=== PATIENT | female | born 1950 | race Caucasian/White ===

== ENCOUNTER 2023-07-01 13:37 | Emergency (ER) | payer MEDICARE, SELFPAY ==
[2023-07-01 13:47] VITALS: BP 146/97; PULSE 118; RESP 18; TEMP 36.5; O2SAT 97
--- NOTE | 2023-07-01 14:00 | DI.RAD_ITS ---
Exam(s) XR CHEST 2V PA LATERAL EXAM: XR CHEST 2V PA LATERAL CLINICAL HISTORY: shortness of breath, COVID +. TECHNIQUE: 2D digital imaging was performed. COMPARISON: No exams were available for comparison FINDINGS: 2 views: Heart size is normal. The mediastinum is not widened. There is some hyperinflation. Right lung is clear. There is nodular density measuring 1 cm in the l eft upper lobe. This may, however, just be the anterior aspect of the 1st rib. No confluent infiltr ates and no pleural effusions. No fractures. No pneumothorax IMPRESSION: No infiltrates nor pleural effusions. 1 cm left upper lobe nodule. There is possibly that this may just be the anterior costochondral junc tion of the left 1st rib. DATA REPOSITORY: RADIATION DOSE DELIVERED:
--- NOTE | 2023-07-01 14:00 | RT.EKG_ITS ---
APPROVED REPORT Exam: Resting ECG Reason for Exam: tachycardia Patient Location: E HR:96 bpm ECG Measurements Heart Rate 96 AXIS [place] 153 P 55 QRSd 77 QRS 45 QT 327 T 23 QTc 414 Conclusion Sinus rhythm...V-rate 60- [address] segment or T wave abnormlaiteis to suggest occlusive [place].
[2023-07-01 14:30] LABS: Abs Immature Grans 0.01 10^3/uL (0.0-0.06); Absolute Basophil Count 0.03 10^3/uL (0.0-0.2); Absolute Eosinophil Count 0.04 10^3/uL (0.0-0.7); Absolute Lymphocyte Count 1.26 10^3/uL (1.2-3.4); Absolute Monocyte Count 0.63 10^3/uL (0.1-0.8); Absolute Neutrophil Count 1.87 10^3/uL (1.2-6.7); Basophils % 0.8; HCT 43.7 % (36.0-46.0); HGB 14.7 g/dL (11.2-15.7); Immature Grans % 0.3; Lymphocytes % 32.8; MCH 30.4 pg (27.0-33.0); MCHC 33.6 % (32.0-36.0); MCV 91 fL (80-95); MPV 9.4 fL (8.0-11.0); Monocytes % 16.4; Neutrophils % 48.7; Platelet Count 156 10^3/uL (130-400); RBC 4.83 10^6/uL (3.93-5.22); RDW 12.2 % (11.7-14.6); RDW-SD 39.9 fL; WBC 3.84 10^3/uL (4.4-10.8)
--- NOTE | 2023-07-01 14:31 | W.ED.GENAD ---
Discharge Plan Disposition Patient Disposition: Home Condition: Good Discharge Details Clinical Impression: COVID-19 Primary Care Provider: Danitza,[facility] ED Provider: Jesenia Michelle Discharge Instructions Instructions: COVID-19 (Coronavirus Disease 2019) (ED) Additional Instructions: Call your primary care doctor today to discuss whether or not you should start Paxlovid- verapamil does interact with Paxlovid so your primary care doctor should decide if you should keep taking this medication or not. Schedule a PCP appointment within one week to follow up on your visit here. Mention that your chest xray should a possible small lung nodule- they may want to get a repeat scan at some point. Keep your appointments to follow up on your thyroid. Return to the emergency department for new or worsening symptoms including difficulty breathing, chest pain, or if you have any other concerns. Medical Decision Making 73yo F with history of hypertension, osteoporosis, presenting with COVID and concern for elevated heart rate. Began to feel unwell approximately 3-4 days ago, tested positive for covid yesterday, today noted her heart rate was higher than usual, 110's while up and walking around, 90's while at rest. No shortness of breath or chest pain. Tachycardiac to 110's on arrival after ambulating into triage, vital signs otherwise reassuring, normal O2 sat. . HR improved to 90's without intervention. Reassuring physical exam, no respiratory distress. EKG NSR, appropriate intervals, no ST segment or T wave abnormalities to suggest occlusive [place]. CXR independently reviewed, no focal pneumonia or pneumothorax on my view, agree with radiology read below. Labs reviewed as below, CBC reassuring, CMP with no actionable abnormalities, lactate normal, TSH elevated with normal T4, troponin negative, d-dimer slightly elevated. Given tachycardia and elevated dimer in the setting of COVID, CT for PE ordered and independently reviewed; no large pulmonary embolism on my view, agree with radiology read below (patient aware of thyroid findings prior and has workup scheduled outpatient already). On reassessment she remains well appearing with no respiratory distress, reassuring vital signs . Patient is on verapamil which does interact with Paxlovid which she is in the window to potentially start- she was advised to call her primary care doctor today to discuss this and whether to proceed with Paxlovid, hold her verapamil, or adjust her dose. Discharged home to PCP follow; discharge instructions and return precautions were reviewed with patient who verbalized understanding; all questions were answered and she is in full agreement with the plan. Imaging Data Radiologic Study: Imaging: X-Ray Radiologist's impression: IMPRESSION: No infiltrates nor pleural effusions. 1 cm left upper lobe nodule. There is possibly that this may just be the anterior costochondral junction of the left 1st rib. Radiologic Study #2: Imaging: CT Scan Radiologist's impression: IMPRESSION: No evidence of pulmonary embolism. No evidence of pulmonary infiltrates. Incidentally noted enlargement of the left lobe of the thyroid. Nonemergent thyroid ultrasound could be considered. Lab Data Lab results reviewed: Yes I reviewed the patient's lab results. Labs: Laboratory Tests Range/Units 07/01/23 14:19 WBC (4.4-10.8) 10^3/uL 3.84 L RBC (3.93-5.22) 10^6/uL 4.83 Hgb (11.2-15.7) g/dL 14.7 Hct (36.0-46.0) % 43.7 MCV (80-95) fL 91 MCH (27.0-33.0) pg 30.4 MCHC (32.0-36.0) % 33.6 RDW (11.7-14.6) % 12.2 Plt Count (130-400) 10^3/uL 156 MPV (8.0-11.0) fL 9.4 Immature Gran % 0.3 Neutrophils % 48.7 Lymphocytes % 32.8 Monocytes % 16.4 Eosinophils % 1.0 Basophils % 0.8 Nucleated RBC % (0.0-0.3) % 0.0 Absolute Neutrophils (1.2-6.7) 10^3/uL 1.87 Absolute Lymphocytes (1.2-3.4) 10^3/uL 1.26 Absolute Monocytes (0.1-0.8) 10^3/uL 0.63 Absolute Eosinophils (0.0-0.7) 10^3/uL 0.04 Absolute Basophils (0.0-0.2) 10^3/uL 0.03 PT (9.1-11.1) sec 9.9 INR (0.9-1.1) 1.0 APTT (23.6-32.8) sec 28.8 D-Dimer (<500) ng/mlFEU 543 H VBG Lactate (0.6-1.4) mmol/L 1.0 Sodium (136-145) mmol/L 136 Potassium (3.5-5.1) mmol/L 3.6 Chloride (98-107) mmol/L 99 Carbon Dioxide (21.0-32.0) mmol/L 28.5 Anion Gap (3-11) mmol/L 8.5 BUN (7-18) mg/dL 18 Creatinine (0.55-1.02) mg/dL 1.0 Est GFR (CKD-EPI 2020) (mL/min/1.73m2) 59.86 Glucose (74-106) mg/dL 148 H Calcium (8.5-10.1) mg/dL 9.1 Magnesium (1.8-2.4) mg/dL 1.9 Total Bilirubin (0.2-1.0) mg/dL 0.5 AST (15-37) U/L 21 ALT (14-59) U/L 19 Alkaline Phosphatase (46-116) U/L 65 Troponin I (<or=60) ng/L < 50 NT-Pro-B Natriuret Pep (<300) pg/mL 94 Total Protein (6.4-8.2) g/dL 8.5 H Albumin (3.4-5.0) g/dL 4.1 TSH (0.36-3.74) uIU/mL 3.80 H Free T4 (0.76-1.46) ng/dL 1.00 HPI General Mode of arrival: ambulatory. Date/Time Provider Initiated Documentation: 07/01/23 14:08. Limitations to Documentation: no limitations. Information obtained by: patient. HPI Narrative: 73yo F with history of hypertension, osteoporosis, presenting with COVID and concern for elevated heart rate. Began to feel unwell approximately 3-4 days ago, tested positive for covid yesterday. Today noted her heart rate was higher than usual, 110's while up and walking around, 90's while at rest. Has had sneezing and sinus congestion. No difficulty breathing or chest pain. No fevers, chills, new rash, nausea, vomiting, abdominal pain, LE edema, or other concerns. She is otherwise in her usual state of health. Related Data Allergies Allergy/AdvReac Type Severity Reaction Status Date / Time No Known Allergies Allergy Unverified 07/01/23 13:50 General Stated Complaint: GenMedical MARY BETH: 3 Review of Systems Narrative: see HPI PFSH All Active Problems (Updated 07/01/23 @ 16:11 by Jesenia Michelle MD) COVID-19 (Acute) Social History Smoking/Tobacco Use Status: Never Smoking risk assessment performed?: Yes Alcohol Intake: current Alcohol Intake frequency: 3 or more drinks per day Alcohol type: wine Drug use: Never Substance use type: does not use Housing: condominium Do you feel safe at home: Yes Do you feel safe in your relationship?: Yes Exam Narrative Exam Narrative: General: Alert, well appearing, well nourished, in no acute distress. Head: Normocephalic, atraumatic Neck: Trachea midline, ?Neck supple. Cardiac: ?RRR, no murmurs appreciated Resp: No respiratory distress. CTAB. Abd: ?Soft, non-distended, nontender : ?No suprapubic tenderness. Extremities: ?No deformities.? No peripheral edema. Neurologic: GCS 15. ? Moves all extremities freely against gravity Course Vital Signs Vital signs: Vital Signs Temperature 36.5 C 07/01/23 13:47 Pulse 118 H 07/01/23 13:47 Respiratory Rate 18 07/01/23 13:47 Blood Pressure 146/97 H 07/01/23 13:47 Pulse Oximetry 97 07/01/23 13:47 Temperature 36.5 C 07/01/23 13:47 Temperature Source Temporal Artery Scan 07/01/23 13:47 Pulse 118 H 07/01/23 13:47 Respiratory Rate 18 07/01/23 13:47 Respiratory Effort Normal, Non-Labored 07/01/23 13:51 Blood Pressure 146/97 H 07/01/23 13:47 Blood Pressure Position Sitting 07/01/23 13:47 Pulse Oximetry 97 07/01/23 13:47 Oxygen Delivery Method Room Air 07/01/23 13:47 Oxygen Flow Rate 0 07/01/23 13:47 PAWSS Have you Been Recently Intoxicated or Drunk Within the Last 30 days?: No Have you Ever Experienced Previous Episodes of Alcohol Withdrawal?: No Have you ever Experienced Withdrawal Seizures?: No Have you ever Experienced Delirium Tremens(DT)s?: No Have you ever undergone Alcohol Rehabilitation Treatment (i.e, inpt ot outpatient treatment programs)?: No Have you ever Experienced Blackouts?: No Have you ever Combined Alcohol with other Downers within the last 90 days?: No Have you ever Combined Alcohol with any other Substance of Abuse during the last 90 days?: No Positive Blood Alcohol level on Presentation? [PCS.BAL]: No Evidence of Increased Autonomic Activity (i.e. HR>120, tremor, sweating, agitation, nausea)?: No Result: 0
[2023-07-01 14:54] LABS: ALT 19 U/L (14-59); AST 21 U/L (15-37); Albumin 4.1 g/dL (3.4-5.0); Alkaline Phosphatase 65 U/L (46-116); Anion Gap 8.5 mmol/L (3-11); BUN 18 mg/dL (7-18); Bilirubin, Total 0.5 mg/dL (0.2-1.0); CO2 28.5 mmol/L (21.0-32.0); Calcium 9.1 mg/dL (8.5-10.1); Chloride 99 mmol/L (98-107); Estimated GFR 59.86 (mL/min/1.73m2); Glucose 148 mg/dL (74-106); Magnesium 1.9 mg/dL (1.8-2.4); NT-proBNP 94 pg/mL (<300); Potassium 3.6 mmol/L (3.5-5.1); Sodium 136 mmol/L (136-145); Total Protein 8.5 g/dL (6.4-8.2); Troponin I < 50 ng/L (<or=60)
[2023-07-01 14:57] LABS: PTT Activated 28.8 sec (23.6-32.8); Prothrombin Time 9.9 sec (9.1-11.1)
[2023-07-01 15:15] LABS: D-Dimer 543 ng/mlFEU (<500)
--- NOTE | 2023-07-01 15:15 | DI.CT_ITS ---
Exam(s) CT CHEST PE CTA EXAM: CT CHEST PE CTA CLINICAL HISTORY: tachycardia COVID elevated dimer. TECHNIQUE: Imaging Protocol: Axial CT angiography was performed with multi-slice acquisition and mu lti-planar reconstructions as well as axial, coronal and sagittal MIP reconstructions. CONTRAST MATERIAL: Intravenous: Omnipaque 350 Contrast volume:100 ml COMPARISON: CR XR CHEST 2V PA LATERAL from 07/01/2023 FINDINGS: Markedly enlarged left lobe of the thyroid. Pulmonary Arteries: No evidence of filling defect to suggest pulmonary emboli. Tracheobronchial tree: Patent where visualized. Mediastinum and Ragini: No dominant adenopathy or fluid collection. Pulmonary parenchyma: No consolidation or dominant measurable mass. Pleura: No effusion or pneumothorax. Heart: The heart is not dilated. No coronary artery calcifications are seen. Aorta: Thoracic aorta non-dilated. Mild atherosclerotic changes. No dissection. Upper abdomen: Unremarkable. Bones: Unremarkable for age. Tubes, Catheters, and Lines: None Soft tissues: Unremarkable. IMPRESSION: No evidence of pulmonary embolism. No evidence of pulmonary infiltrates. Incidentally noted enlargement of the left lobe of the thyroid. Nonemergent thyroid ultrasound could be considered. RADIATION DOSE DELIVERED: Total DLP DATA REPOSITORY: All CT scans at this facility are submitted to the National Radiology Data Registry (NRDR) Dose Index Registry (DIR) with the [employer] (A[employer]). RADIATION OPTIMIZATION: All CT scans at this facility use at least one of these dose optimization te chniques: automated exposure control; mA and/or kV adjustment per patient size (includes targeted exa ms where dose is matched to clinical indication); or iterative reconstruction.
[2023-07-01] MEDS: Normal Saline - Diluent 50 ML VIAL IJ (15:39)
[2023-07-01] MEDS: Normal Saline 1,000 ML 1000 ML IV (15:44)
[2023-07-01] MEDS: Omnipaque 350 MG/ML 100 ML BTL IJ (15:46)
[2023-07-01 16:23] VITALS: PULSE 88; RESP 15; O2SAT 98
[2023-07-01 16:25] VITALS: RESP 15
== END 2023-07-01 16:23 | disposition home or self-care (01) ==
PROVIDERS: Emergency Provider Student in an Organized Health Care Education/Training Program
DX: U07.1 COVID-19 (principal); I10 Essential (primary) hypertension; M81.0 Age-related osteoporosis without current pathological fracture
CPT/HCPCS: 71275; 80053; 93005; 96360; 99285; 71046; 83605; 83735; 83880; 84439; 84443; 84484; 85025; 85379; 85610; 85730; 93010; 99284; J3490

== ENCOUNTER 2024-12-10 08:59 | Outpatient (CLI) | payer MEDICARE, SELFPAY ==
[2024-12-10 16:53] LABS: FREE T4 1.17 ng/dL (0.76-1.46); TSH 3.47 uIU/mL (0.36-3.74)
[2024-12-10 17:07] LABS: T4 10.5 ug/dL (4.7-13.3)
== END 2024-12-10 09:00 | disposition home or self-care (01) ==
LOC: LBO 09:02
PROVIDERS: Visit Provider Internal Medicine Endocrinology, Diabetes & Metabolism
DX: E03.9 Hypothyroidism, unspecified (principal)
CPT/HCPCS: 36415; 84436; 84439; 84443